=== PATIENT | male | born 1965 | race Caucasian/White ===

== ENCOUNTER 2020-09-13 11:16 | Emergency (ER) | payer OTHER ==
[2020-09-13 11:54] LABS: WHITE BLOOD COUNT 6.6 K/UL (4.5-11.0)
[2020-09-13 12:20] LABS: BUN/CREATININE RATIO 17 (0-10)
== END 2020-09-13 16:30 | disposition home or self-care (01) ==
LOC: ER1 11:16
PROVIDERS: Emergency Medicine
DX: U07.1 COVID-19 (principal); E87.6 Hypokalemia; R79.89 Other specified abnormal findings of blood chemistry; E11.9 Type 2 diabetes mellitus without complications; I10 Essential (primary) hypertension; Z90.89 Acquired absence of other organs
CPT/HCPCS: 71045; 80053; 81001; 82550; 82553; 83874; 84484; 85025; 85379; 86140; 99283; J7030; M0239